=== PATIENT | male | born 1950 | race Caucasian/White ===

== ENCOUNTER → 2016-12-11 | Outpatient (CLI) | payer BC, MEDICARE ==
[~2016-12-11] MED LIST: REGADENOSON 0.4 MG/5 ML SYRINGE ONE
== END | disposition home or self-care (01) ==
LOC: CFH 07:58
PROVIDERS: ATTEND Internal Medicine Cardiovascular Disease
DX: I25.89 Other forms of chronic ischemic heart disease (principal); I25.2 Old myocardial infarction; I10 Essential (primary) hypertension; E11.9 Type 2 diabetes mellitus without complications; Z95.5 Presence of coronary angioplasty implant and graft
CPT/HCPCS: 78452; 93017; A9502; J2785

== ENCOUNTER → 2016-12-12 | Outpatient (CLI) | payer BC, MEDICARE | END | disposition home or self-care (01) | LOC: CFH 06:42 | PROVIDERS: ATTEND Internal Medicine Cardiovascular Disease | DX: I25.10 Atherosclerotic heart disease of native coronary artery without angina pectoris (principal) | CPT/HCPCS: 93306 ==

== ENCOUNTER → 2017-11-05 | Outpatient (CLI) | payer BC, MEDICARE ==
[~2017-11-05] MED LIST changes: +ATOR-2 PO; +CARB15DR5 EACHEYE; +CHOL200024 PO; +CLOP75TA52 PO; +CYAN25009 PO; +DICL75TA2 PO; +EMPA25TA PO; +GABA300C10 PO; +INSU100I13 SC; +INSU200I SC; +LIRA0.6P2 SC; +LOSA100T6 PO; +METF500T4 PO; +METO25TA35 PO; +MOME17SP NS; +MULT-224 PO; +NAPR-816 PO; +OMEP20TA62 PO; -REGADENOSON 0.4 MG/5 ML SYRINGE ONE; +TAMS0.4C2 PO; +TIZA4TAB PO; +VENL75TA PO; +VIT1CAPS42 PO; +[UNRECOGNIZED DRUG - OTHER] INH; +mega red PO
[2017-11-05 14:15] LABS: BASOPHILS # (AUTO) 0.04 x10^3/uL (0-0.1); BASOPHILS % (AUTO) 0 % (0-1); EOSINOPHILS # (AUTO) 0.13 x10^3/uL (0-0.4); EOSINOPHILS % (AUTO) 1 % (1-7); LYMPHOCYTES # (AUTO) 1.78 x10^3/uL (1-3.4); LYMPHOCYTES % (AUTO) 20 % (22-44); MD NO; MEAN CORPUSCULAR HGB CONC 34.2 g/dL (33.2-36.2); MEAN CORPUSCULAR VOLUME 93.6 fL (81-97); MEAN PLATELET VOLUME 7.8 fL (7.4-10.4); MONOCYTES # (AUTO) 0.88 x10^3/uL (0.2-0.8); MONOCYTES % (AUTO) 10 % (2-9); NEUTROPHILS # (AUTO) 6.14 x10^3/uL (1.8-6.8); NEUTROPHILS % (AUTO) 69 % (42-75); PLATELET COUNT 248 x10^3/uL (130-400); RED CELL DISTRIBUTION WIDTH 13.6 % (9.4-14.8)
[2017-11-05 14:26] LABS: ALBUMIN 3.6 g/dL (3.4-5.0); ANION GAP 9 mmol/L (5-15); CALCIUM 8.9 mg/dL (8.5-10.1); CHLORIDE 109 mmol/L (98-107)
[2017-11-05 14:31] LABS: ALANINE AMINOTRANSFERASE 50 U/L (12-78); ALKALINE PHOSPHATASE 93 U/L (45-117); BILIRUBIN,TOTAL 0.5 mg/dL (0.2-1.0); CREATININE 1.11 mg/dL (0.7-1.3); TOTAL PROTEIN 6.9 g/dL (6.4-8.2)
== END ==
LOC: STAR 13:04
PROVIDERS: ATTEND Otolaryngology Facial Plastic Surgery
DX: C43.9 Malignant melanoma of skin, unspecified (principal); C78.00 Secondary malignant neoplasm of unspecified lung
CPT/HCPCS: 36415; 80053; 85025; 93005

== ENCOUNTER 2017-11-09 06:57 | Day surgery (SDC) | payer BC, MEDICARE ==
[~2017-11-09] VITALS: Ht 188 cm; Wt 133.7 kg
[2017-11-09] MEDS ORDERED: BACITRACIN ZINC OINT 500U/GM, 0.9 GM ONE ×2 (07:25)
[2017-11-09] MEDS ORDERED: EPINEPHRINE 1 MG/ML, 1ML ONE (07:25)
[2017-11-09] MEDS ORDERED: LIDOCAINE 1%, 50ML ONE (07:25)
[2017-11-09] MEDS ORDERED: LACTATED RINGERS 1,000 ML IV SCH (07:31)
[2017-11-09] MEDS ORDERED: ALBU8.5H8 INH (07:37)
[2017-11-09] MEDS ORDERED: FENTANYL PF 250 MCG/5ML ONE (08:55)
[2017-11-09] MEDS ORDERED: MIDAZOLAM 1 MG/ML, 2ML ONE (08:55)
[2017-11-09] MEDS ORDERED: LIDOCAINE 4%, 4 ML SYR/CANN TP ONE (08:57)
[2017-11-09] MEDS ORDERED: PROPOFOL 10 MG/ML, 20ML ONE (08:57)
[2017-11-09] MEDS ORDERED: ROCURONIUM 10MG/ML,5ML ONE (08:57)
[2017-11-09] MEDS ORDERED: ONDANSETRON 2MG/ML, 2ML ONE (08:57)
[2017-11-09] MEDS ORDERED: SUCCINYLCHOLINE 20 MG/ML, 10ML ONE (08:57)
[2017-11-09] MEDS ORDERED: LABETALOL 5MG/ML 40ML VIAL ONE (08:57)
[2017-11-09] MEDS ORDERED: CEFAZOLIN 1,000 MG ONE (08:57)
[2017-11-09] MEDS ORDERED: FENTANYL PF 100 MCG/2ML IV PRN (09:00)
[2017-11-09] MEDS ORDERED: hydrALAzine 20 MG/ML, 1ML IV PRN (09:00)
[2017-11-09] MEDS ORDERED: HYDROmorphone 1 MG/ML, 1ML IV PRN (09:00)
[2017-11-09] MEDS ORDERED: HYDROcodone/APAP 7.5-325MG/15ML UDC PO PRN (09:00)
[2017-11-09] MEDS ORDERED: LABETALOL 5MG/ML, 20ML IV PRN (09:00)
[2017-11-09] MEDS ORDERED: OXYcodone 5 MG/5 ML ORAL.SOL UDC PO PRN (09:00)
[2017-11-09] MEDS ORDERED: ONDANSETRON 2MG/ML, 2ML IVPush PRN (09:00)
[2017-11-09] MEDS ORDERED: ACETAMINOPHEN 325 MG TABLET PO PRN (09:00)
[2017-11-09] MEDS ORDERED: FENTANYL PF 100 MCG/2ML ONE (10:04)
[2017-11-09] MEDS ORDERED: INSULIN SINGLE DOSE, ER SQ-INSULIN ONE (10:55)
[2017-11-09] MEDS ORDERED: INSULIN REGULAR 100 UNITS/ML, 3ML VIAL IVPush ONE (11:00)
== END 2017-11-09 15:30 ==
LOC: OUT 06:57
PROVIDERS: ATTEND Otolaryngology Facial Plastic Surgery
DX: C81.21 Mixed cellularity Hodgkin lymphoma, lymph nodes of head, face, and neck (principal); E11.9 Type 2 diabetes mellitus without complications; I10 Essential (primary) hypertension; I25.10 Atherosclerotic heart disease of native coronary artery without angina pectoris; Z95.5 Presence of coronary angioplasty implant and graft; Z79.4 Long term (current) use of insulin
CPT/HCPCS: 38510; 82962; 88305; 88341; 88342; J0171; J0330; J0690; J1815; J2250; J2405; J2704; J3010; J3490; J7120; G0461